=== PATIENT | female | born 1995 | race Two or more races ===

== ENCOUNTER 2016-08-25 11:20 | Emergency (ER) | payer OTHER ==
--- NOTE | 2016-08-25 13:42 | RAD ---
LEFT HAND 3 VIEWS HISTORY: Left hand pain status post fall. COMPARISONS: None. TECHNIQUE: Frontal, lateral, and oblique views of the left hand. ALIGNMENT: Grossly unremarkable. FRACTURE: No displaced acute fracture. SOFT TISSUES: Grossly unremarkable. RADIOOPAQUE FOREIGN BODY: None. IMPRESSION: No gross malalignment or displaced acute fracture noted.
== END 2016-08-25 14:21 | disposition home or self-care (01) ==
LOC: ED 11:20
DX: M25.532 Pain in left wrist (principal); W00.0XXA Fall on same level due to ice and snow, initial encounter; Y93.01 Activity, walking, marching and hiking; Y92.9 Unspecified place or not applicable

== ENCOUNTER 2016-10-29 22:28 | Emergency (ER) | payer OTHER ==
[2016-10-29 22:54] LABS: URINE BILIRUBIN NEGATIVE (NEGATIVE); URINE BLOOD 4+ (NEGATIVE); URINE GLUCOSE (UA) NEGATIVE (NEGATIVE); URINE LEUKOCYTE ESTERASE NEGATIVE (NEGATIVE); URINE NITRITE NEGATIVE (NEGATIVE); URINE PROTEIN NEGATIVE (NEGATIVE); URINE UROBILINOGEN NORMAL (0-1 mg/dl)
[2016-10-29 22:58] LABS: HCG,QUALITATIVE URINE NEGATIVE
[2016-10-29 23:06] LABS: URINE APPEARANCE CLEAR; URINE COLOR STRAW
[2016-10-29 23:26] LABS: URINE RBC 40-50 /hpf
[2016-10-29 23:27] LABS: URINE WBC RARE /hpf
[2016-10-29] MEDS ORDERED: ONDANSETRON 4 MG ODT TAB ONE (23:58)
[2016-10-29] MEDS ORDERED: IBUPROFEN 800 MG TABLET ONE (23:58)
[2016-10-30] MEDS ORDERED: MAALOX/LIDO2%VISC/SIMETHICONE 40 ML BOT ONE (00:17)
--- NOTE | 2016-10-30 07:28 | RAD ---
Name: FLORENTINO OREILLY Exam: Two-view chest Comparison: 02/04/2005 Clinical history: Abdominal pain with fever and cough Findings: 2 views of the chest are submitted. The heart mediastinum and hilar structures are within normal limits. There is no failure, infiltrate, pleural effusion or pneumothorax. Regional skeleton is within normal limits. Impression: No acute cardiopulmonary process
== END 2016-10-30 00:59 | disposition home or self-care (01) ==
LOC: ED 22:28
DX: R11.10 Vomiting, unspecified (principal); R50.9 Fever, unspecified; E11.9 Type 2 diabetes mellitus without complications; Z79.84 Long term (current) use of oral hypoglycemic drugs
CPT/HCPCS: 81025; 81001; 71020; 99283 ×2; 82962; A9270 ×3